=== PATIENT | female | born 1995 ===

== ENCOUNTER → 2016-07-22 | Outpatient (CLI) | payer OTHER ==
--- NOTE | 2016-07-22 13:16 | DX ---
Left ankle, 3 views. HISTORY: Pain. FINDINGS: Mortise is intact. No fracture or joint effusion. IMPRESSION: Negative left ankle radiographs.
== END ==
LOC: BMCIMAGING 12:36
PROVIDERS: ATTEND Emergency Medicine
DX: M25.572 Pain in left ankle and joints of left foot (principal)